=== PATIENT | male | born 1980 | race Caucasian/White ===

== ENCOUNTER 2022-07-11 17:18 | Inpatient (IN) | payer BC, OTHER ==
[2022-07-11] MEDS ORDERED: Fentanyl 100 MCG/2 ML VIAL ONE (18:01)
[2022-07-11 18:21] LABS: #Eosinphils 0.2 10x3/uL (0.0-0.5); #Neutrophils 4.3 10x3/uL (1.5-8.4); %Basophils 0.4 % (0.0-2.0); %Eosinophils 2.5 % (0.0-6.0); %Lymphocytes 38.4 % (18.0-47.0); %Monocytes 10.7 % (0.0-10.0); %Neutrophils 47.7 % (40.0-75.0); Hemoglobin 13.7 g/dL (13.5-17.5); Mean Corpuscular HGB CONC 34.5 g/dL (32.0-36.0); Mean Corpuscular Volume 83.9 fl (81.2-95.1); Mean Platelet Volume 9.3 fl (7.4-10.4); Platelet Count 233 10x3/uL (150-450); RBC Distribution Width 13.1 % (11.5-14.5); Red Blood Cell (RBC) Count 4.73 10x6/uL (4.32-5.72)
[2022-07-11 18:44] LABS: ALT (SGPT) 21 U/L (8-55); AST (SGOT) 28 U/L (5-34); Alkaline Phosphatase 39 U/L (40-110); Anion Gap 12 mmol/L (10-20); BUN (Urea Nitrogen) 20 mg/dL (8.9-20.6); Bilirubin, Total 0.6 mg/dL (0.2-1.2); CK (CPK) 131 U/L (30-200); Calc. Creatinine Clearance 0 mL/min (70-130); Calcium 8.5 mg/dL (7.8-10.44); Carbon Dioxide 24 mmol/L (22-29); Chloride 107 mmol/L (98-107); Estimated GFR 100; Globulin 2.4 g/dL (2.4-3.5); Glucose 91 mg/dL (70-105); Lipase 850 U/L (8-78); Potassium 3.9 mmol/L (3.5-5.1); Protein, Total 6.4 g/dL (6.0-8.3); Sodium 139 mmol/L (136-145)
[2022-07-11 18:51] LABS: SARS-CoV-2 NAA Rapid Test Not Detected (NotDetected)
[2022-07-11] MEDS ORDERED: Morphine 4 MG/ML VIAL ONE (19:15)
[2022-07-11 20:40] VITALS: BMI 28.8
[2022-07-11] MEDS ORDERED: Ondansetron PF 4 MG/2 ML Vial IVP PRN (20:46)
[2022-07-11] MEDS ORDERED: Lorazepam 1 MG TAB PO PRN (20:53)
[2022-07-11] MEDS ORDERED: Ondansetron ODT 4 MG TAB PO PRN (20:53)
[2022-07-11] MEDS ORDERED: Lorazepam 2 MG/ML VIAL IM PRN (20:53)
[2022-07-11] MEDS ORDERED: Thiamine HCl 200 MG/2 ML VIAL SLOW IVP SCH (21:00)
[2022-07-11] MEDS ORDERED: Lorazepam 1 MG TAB PO SCH (21:00)
[2022-07-11] MEDS ORDERED: Electrolyte Replacement Protocol 1 EACH FS SCH (21:00)
[2022-07-11] MEDS ORDERED: Lactated Ringer's 1,000 ML IV SCH (21:00)
[2022-07-11] MEDS ORDERED: Lorazepam 2 MG/ML VIAL SLOW IVP PRN (21:08)
[2022-07-11 21:23] LABS: Magnesium 1.9 mg/dL (1.6-2.6)
[2022-07-11] MEDS: Multivitamins, Adult 10 ML, Folic Acid 1 MG in Dextrose 5 %-0.45 % NaCl 1,000 ML IV SCH (21:56)
[2022-07-11] MEDS: Nicotine 21 MG PATCH TD SCH (21:57)
[2022-07-11] MEDS: Potassium Chloride 20 MEQ in Lactated Ringer's 1,000 ML IV SCH (21:57)
[2022-07-11] MEDS ORDERED: Magnesium 2 GM/50 ML(in water) 2 GM in Premix Bag 1 BAG IVPB SCH (22:00)
[2022-07-11] MEDS: Thiamine HCl 200 MG/2 ML VIAL SLOW IVP SCH (22:02)
[2022-07-11] MEDS: Lorazepam 2 MG/ML VIAL SLOW IVP SCH (22:02)
[2022-07-11] MEDS: Fentanyl 100 MCG/2 ML VIAL SLOW IVP PRN (23:33)
[2022-07-12] MEDS: Potassium Chloride 20 MEQ in Lactated Ringer's 1,000 ML IV SCH ×5 (03:39→22:25)
[2022-07-12] MEDS: Lorazepam 2 MG/ML VIAL SLOW IVP SCH ×4 (03:39→22:26)
[2022-07-12] MEDS: Fentanyl 100 MCG/2 ML VIAL SLOW IVP PRN ×3 (04:45→17:59)
[2022-07-12 05:15] LABS: PTT 27.9 sec (22.0-33.0); Prothrombin Time 10.9 sec (9.5-12.1)
[2022-07-12 05:18] LABS: #Eosinphils 0.2 10x3/uL (0.0-0.5); #Monocytes 0.8 10x3/uL (0.0-1.1); #Neutrophils 4.3 10x3/uL (1.5-8.4); %Basophils 0.3 % (0.0-2.0); %Eosinophils 2.3 % (0.0-6.0); %Lymphocytes 27.5 % (18.0-47.0); %Monocytes 10.7 % (0.0-10.0); %Neutrophils 58.9 % (40.0-75.0); Hemoglobin 12.3 g/dL (13.5-17.5); Mean Corpuscular HGB CONC 33.2 g/dL (32.0-36.0); Mean Corpuscular Hemoglobin 28.9 pg (27.0-33.0); Mean Corpuscular Volume 87.1 fl (81.2-95.1); Mean Platelet Volume 9.4 fl (7.4-10.4); Platelet Count 200 10x3/uL (150-450); RBC Distribution Width 13.2 % (11.5-14.5); Red Blood Cell (RBC) Count 4.25 10x6/uL (4.32-5.72); White Blood Cell (WBC) Count 7.4 10x3/uL (3.5-10.5)
[2022-07-12 05:50] LABS: ALT (SGPT) 14 U/L (8-55); AST (SGOT) 22 U/L (5-34); Albumin 3.4 g/dL (3.5-5.0); Alkaline Phosphatase 32 U/L (40-110); Anion Gap 8 mmol/L (10-20); BUN (Urea Nitrogen) 13 mg/dL (8.9-20.6); Bilirubin, Total 0.7 mg/dL (0.2-1.2); Calc. Creatinine Clearance 134 mL/min (70-130); Calcium 7.8 mg/dL (7.8-10.44); Carbon Dioxide 25 mmol/L (22-29); Chloride 109 mmol/L (98-107); Estimated GFR 113; Globulin 1.9 g/dL (2.4-3.5); Glucose 110 mg/dL (70-105); Lipase 499 U/L (8-78); Potassium 3.9 mmol/L (3.5-5.1); Protein, Total 5.3 g/dL (6.0-8.3); Sodium 138 mmol/L (136-145)
[2022-07-12] MEDS ORDERED: Folic Acid 1 MG TAB PO SCH (09:00)
[2022-07-12] MEDS ORDERED: Multivit, Therapeutic 1 TAB PO SCH (09:00)
[2022-07-12] MEDS: Enoxaparin Sodium 40 MG/0.4 ML SYRINGE SC SCH (09:31)
[2022-07-12] MEDS: Ketorolac Tromethamine 30 MG/ML VIAL IVP PRN (14:26)
[2022-07-12] MEDS: Thiamine HCl 200 MG/2 ML VIAL SLOW IVP SCH (20:17)
[2022-07-12] MEDS: Nicotine 21 MG PATCH TD SCH (20:17)
[2022-07-12] MEDS: Morphine 4 MG/ML VIAL SLOW IVP PRN ×2 (20:30→23:53)
[2022-07-12] MEDS ORDERED: Lorazepam 1 MG TAB PO PRN (20:53)
[2022-07-12] MEDS: Multivitamins, Adult 10 ML, Folic Acid 1 MG in Dextrose 5 %-0.45 % NaCl 1,000 ML IV SCH (22:26)
[2022-07-13] MEDS: Potassium Chloride 20 MEQ in Lactated Ringer's 1,000 ML IV SCH ×2 (04:07→08:57)
[2022-07-13] MEDS: Morphine 4 MG/ML VIAL SLOW IVP PRN (04:17)
[2022-07-13] MEDS: Enoxaparin Sodium 40 MG/0.4 ML SYRINGE SC SCH (08:58)
[2022-07-13] MEDS: Ketorolac Tromethamine 30 MG/ML VIAL IVP PRN (08:58)
[2022-07-13 10:11] LABS: ALT (SGPT) 17 U/L (8-55); AST (SGOT) 24 U/L (5-34); Albumin 4.2 g/dL (3.5-5.0); Alkaline Phosphatase 43 U/L (40-110); Anion Gap 11 mmol/L (10-20); BUN (Urea Nitrogen) 7 mg/dL (8.9-20.6); Bilirubin, Total 0.7 mg/dL (0.2-1.2); Calc. Creatinine Clearance 125 mL/min (70-130); Calcium 9.6 mg/dL (7.8-10.44); Carbon Dioxide 29 mmol/L (22-29); Chloride 104 mmol/L (98-107); Estimated GFR 111; Globulin 2.6 g/dL (2.4-3.5); Glucose 117 mg/dL (70-105); Lipase 239 U/L (8-78); Potassium 4.2 mmol/L (3.5-5.1); Protein, Total 6.8 g/dL (6.0-8.3); Sodium 140 mmol/L (136-145)
[2022-07-13 10:56] VITALS: BP 157/95; TEMP 98.4
[2022-07-13] MEDS ORDERED: Lorazepam 1 MG TAB PO PRN (20:53)
[2022-07-13] MEDS ORDERED: Lorazepam 0.5 MG TAB PO SCH (21:00)
[2022-07-14] MEDS ORDERED: Lorazepam 0.5 MG TAB PO PRN (20:53)
[2022-07-14] MEDS ORDERED: Thiamine 100 MG TAB PO SCH (21:00)
== END 2022-07-13 11:10 | disposition home or self-care (01) | DRG 440 ==
LOC: CSHERS 17:18 → CSHTELE 20:27
PROVIDERS: ADMIT Family Medicine; ATTEND Hospitalist
DX: K85.20 Alcohol induced acute pancreatitis without necrosis or infection (principal); F17.210 Nicotine dependence, cigarettes, uncomplicated; F10.20 Alcohol dependence, uncomplicated; K40.90 Unilateral inguinal hernia, without obstruction or gangrene, not specified as recurrent; D63.8 Anemia in other chronic diseases classified elsewhere; Z20.822 Contact with and (suspected) exposure to COVID-19
CPT/HCPCS: 36415; 76870; 80053; 82550; 83690; 83735; 85025; 85610; 85730; 93976; J1650; J1885; J2060; J2270; J3010; J3411; J3475; J3480; J7042; J7120; U0002